=== PATIENT | female | born 1995 | race Caucasian/White ===

== ENCOUNTER 2023-05-01 12:58 | Emergency (ER) | payer OTHER ==
[2023-05-01 13:10] VITALS: BP 147/88; PULSE 74; RESP 18; TEMP 99; BMI 34.7
== END 2023-05-01 13:48 | disposition home or self-care (01) ==
LOC: FER 12:58
DX: R07.9 Chest pain, unspecified (principal); R10.13 Epigastric pain; R11.0 Nausea
CPT/HCPCS: 93005; 99283-25

== ENCOUNTER 2023-09-19 18:04 | Emergency (ER) | payer OTHER ==
[2023-09-19 18:20] VITALS: BP 121/79; PULSE 68; RESP 16; TEMP 98; BMI 32.9
[2023-09-19 20:46] LABS: HEMATOCRIT 40.7 % (32.4-45.2); HEMOGLOBIN 13.8 G/dL (10.7-15.3); MCH 30.6 pg (25.7-33.7); MCHC 33.9 g/dl (32.0-36.0); MEAN CELL VOLUME 90.2 fl (80-96); MEAN PLT VOLUME 8.6 fl (7.5-11.1); PLATELET COUNT 212.2 10^3/uL (134-434); RBC 4.51 10^6/uL (3.60-5.2); RDW 13.6 % (11.6-15.6)
[2023-09-19 20:58] LABS: INR 1.1 (0.83-1.09); PROTHROMBIN TIME (PATIENT) 12.8 SEC (9.7-13.0)
[2023-09-19 21:00] LABS: PLATELET ESTIMATE ADEQUATE
[2023-09-19 21:01] LABS: ACTIVATED PTT 30.7 SECONDS (25.2-36.5)
[2023-09-19 21:08] LABS: ALBUMIN 4.8 g/dl (3.4-5.0); BILIRUBIN,TOTAL 0.7 mg/dl (0.2-1); CALCIUM 9.6 mg/dl (8.5-10.1); CREATININE 0.7 mg/dl (0.6-1.3); TOT PROT 7.2 g/dl (6.4-8.2)
== END 2023-09-19 21:57 | disposition home or self-care (01) ==
LOC: FER 18:04
DX: R07.89 Other chest pain (principal); Z20.822 Contact with and (suspected) exposure to COVID-19
CPT/HCPCS: 0241U-QW; 36415; 71046-TC-FY; 80053; 85027; 85379; 85610; 85730; 93005; 93308; 99285-25

== ENCOUNTER 2024-01-17 19:03 | Emergency (ER) | payer OTHER ==
[2024-01-17 19:12] VITALS: BP 132/77; PULSE 78; RESP 18; TEMP 98.6; BMI 22.7
== END 2024-01-17 20:50 | disposition home or self-care (01) ==
LOC: FER 19:03
DX: R11.2 Nausea with vomiting, unspecified (principal); R10.13 Epigastric pain; M25.512 Pain in left shoulder
CPT/HCPCS: 93005; 99283-25

== ENCOUNTER 2024-06-11 17:19 | Emergency (ER) | payer OTHER ==
[2024-06-11 17:38] VITALS: BP 115/71; PULSE 108; RESP 18; TEMP 99.1; BMI 32.3
[2024-06-11 18:21] LABS: HEMATOCRIT 42.9 % (32.4-45.2); HEMOGLOBIN 13.9 G/dL (10.7-15.3); MCH 29.6 pg (25.7-33.7); MCHC 32.4 g/dl (32.0-36.0); MEAN CELL VOLUME 91.3 fl (80-96); MEAN PLT VOLUME 8.4 fl (7.5-11.1); PLATELET COUNT 239.6 10^3/uL (134-434); RDW 13.3 % (11.6-15.6); WHITE BLOOD COUNT 9.4 10^3/uL (4.0-10.8)
[2024-06-11 18:39] LABS: ALBUMIN 4.7 g/dl (3.4-5.0); ALK PHOS 53 U/L (45-117); ANION GAP 8 mmol/L (4-13); BILIRUBIN,TOTAL 0.5 mg/dl (0.2-1); CALCIUM 9.5 mg/dl (8.5-10.1); CHLORIDE 103 mmol/L (98-107); CO2 25 mmol/L (21-32); CREATININE 0.8 mg/dl (0.6-1.3); GLUCOSE,RANDOM 87 mg/dl (74-106); MAGNESIUM 1.7 mg/dL (1.8-2.4); POTASSIUM 4.2 mmol/L (3.5-5.1); SGOT/AST 13 U/L (15-37); SGPT/ALT 16 U/L (7-52); SODIUM 136 mmol/L (136-145); TOT PROT 7.5 g/dl (6.4-8.2)
[2024-06-11 19:02] LABS: PLATELET ESTIMATE ADEQUATE
[2024-06-11] MEDS: MAGNESIUM SULF 50% (8.12 MEQ/2 ML-1 GM VIAL) IVPB ONE (19:53)
[2024-06-11] MEDS: MAGNESIUM OXIDE 400 MG TABLET (FP) PO ONE (20:01)
== END 2024-06-11 20:12 | disposition home or self-care (01) ==
LOC: FER 17:19
DX: R07.89 Other chest pain (principal); E83.42 Hypomagnesemia; R20.2 Paresthesia of skin; R11.0 Nausea; M79.602 Pain in left arm; M25.562 Pain in left knee; M25.572 Pain in left ankle and joints of left foot
CPT/HCPCS: 36415; 71046-TC-FY; 80053; 83735; 84484; 84703; 85027; 93005; 99285-25